=== PATIENT | female | born 1980 | race African-American/Black ===

== ENCOUNTER 2017-05-10 04:15 | Emergency (ER) | payer OTHER ==
[2017-05-10 04:20] VITALS: BP 149/104; BMI 24.7
--- NOTE | 2017-05-10 04:44 | DR.GENAD ---
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 Chief Complaint:: epigastric pain for 30 minutes Self Treatment fo Chief Complaint: none - Nurses notes reviewed Nurses Notes Review: Yes - Source History Provided: Patient - Mode of Arrival Mode of Arrival: Ambulatory - Timing Onset of Chief Complaint: 05/10/17 Came on: Gradually, On Awakening - Duration How lon Duration: Minutes - Location Location: epigastric - Severity Severity: Moderate, Severe - Associated Signs and Symptoms Associated Signs and Symptoms: none PMH - PMH Past Medical History: No Past Surgical History: No - Family History History of Family Medical Conditions: Yes Family Medical History: Cancer, Coronary Artery Disease, Heart Failure - Social History Does patient currently use any type of tobacco product: No Have you used tobacco products in the last 12 months: No Type of Tobacco Use: None Does any household member use tobacco: No Alcohol Use: None Do you use any recreational Drugs:: No Lives With: Family Lives Where: Home - infectious screening In the last 2 months have you had wt loss of >10#?: NO Have you had fever, night sweats or hemotysis?: No Have you traveled outside the country in the last 6 months?: No Isolation: Standard ROS - Review of Systems Constitutional: No Symptoms Reported Eyes: No Symptoms Reported ENTM: No Symptoms Reported Respiratoy: No Symptoms Reported Cardiovascular: No Symptoms Reported Gastrointestinal/Abdominal: Abdominal Pain (epigastric) Genitourinary: No Symptoms Reported Neurological: No Symptoms Reported Musculoskeletal: No Symptoms Reported Integumentary: No Symptoms Reported Hematologic/Lymphatic: No Symptoms Reported Endocrine: No Symptoms Reported Psychiatric: No Symptoms Reported All Other Systems: Reviewed and Negative PE - Vital Signs Vitals: Temperature 97.9 F Pulse Rate 86 Respiratory Rate 18 Blood Pressure 149/104 O2 Sat by Pulse Oximetry 100 - General Limitations: No Limitations General Appearance: Alert, In No Apparent Distress - Head Head Exam: Normal Inspection - Eyes Eye exam: Normal Appearance - ENT ENT Exam: Normal Exam External Ear Exam: Normal External Inspection TM/Canal Exam: Bilateral Normal Nose Exam: Normal Nose Exam Mouth Exam: Normal Inspection Throat Exam: Normal Inspection - Neck Neck Exam: Normal Inspection - Chest Chest Inspection: Normal Inspection - Respiratory Respiratory Exam: Normal Lung Sounds Bilat Respiratory Exam: Bilateral Clear to Auscultation - Cardiovascular Cardiovascular Exam: Regular Rate, Normal Rhythm - Abdominal Exam Abdominal Exam: Normal Inspection, Normal Bowel Sounds, Soft, Tenderness Abdominal Tenderness: Epigastrium, Moderate - Extremities Extremities Exam: Normal Inspection - Back Back Exam: Normal Inspection - Neurologic Neurological Exam: Alert, Oriented X3 - Psychiatric Psychiatric Exam: Normal Affect, Normal Mood - Skin Skin Exam: Warm, Dry, Intact, Normal Color ROR - Labs Reviewed Result Diagrams: 05/10/17 05:05 05/10/17 05:05 Laboratory: WBC 10.3 X10^3/uL (3.6-10.0) H 05/10/17 05:05 RBC 4.50 X10^6/uL (3.5-5.4) 05/10/17 05:05 Hgb 12.4 g/dL (12.0-16.0) 05/10/17 05:05 Hct 35.9 % (36.0-47.0) L 05/10/17 05:05 MCV 79.8 fL (80.0-100.0) L 05/10/17 05:05 MCH 27.5 pg (27.0-34.0) 05/10/17 05:05 MCHC 34.5 g/dL (33.0-35.0) 05/10/17 05:05 RDW 14.1 % (11.6-16.5) 05/10/17 05:05 Plt Count 265 X10^3/uL (150.0-450.0) 05/10/17 05:05 MPV 8.7 fL (7.4-11.0) 05/10/17 05:05 Neut % 73.7 % (42.0-75.0) 05/10/17 05:05 Lymph % 18.7 % (21.0-51.0) L 05/10/17 05:05 [place] % 5.0 % (0.0-13.0) 05/10/17 05:05 Eos % 2.2 % (0.9-2.9) 05/10/17 05:05 Baso % 0.4 % (0.2-1.0) 05/10/17 05:05 Neut # 7.6 x10^3/uL (2.2-4.8) H 05/10/17 05:05 Lymph # 1.9 X10^3/uL (1.3-2.9) 05/10/17 05:05 [place] # 0.5 x10^3/uL (0.3-0.8) 05/10/17 05:05 Eos # 0.2 x10^3/uL (0.0-0.2) 05/10/17 05:05 Baso # 0.0 X10^3/uL (0.0-0.1) 05/10/17 05:05 Absolute Nucleated RBC 0.0 /100WBC 05/10/17 05:05 Sodium 141 mmol/L (136-145) 05/10/17 05:05 Corrected Sodium TNP 05/10/17 05:05 Potassium 3.4 mmol/L (3.5-5.1) L 05/10/17 05:05 Chloride 107 mmol/L (98-107) 05/10/17 05:05 Carbon Dioxide 28.3 mmol/L (21-32) 05/10/17 05:05 BUN 12 mg/dL (7-18) 05/10/17 05:05 Creatinine 0.80 mg/dL (0.55-1.02) 05/10/17 05:05 Est GFR (MDRD) Af Amer > 60 (>60) 05/10/17 05:05 Est GFR (MDRD) Non-Af > 60 (>60) 05/10/17 05:05 Glucose 102 mg/dL (65-99) H 05/10/17 05:05 Calcium 8.8 mg/dL (8.5-10.1) 05/10/17 05:05 Corrected Calcium 9.4 mg/dL (8.5-10.1) 05/10/17 05:05 Total Bilirubin 0.50 mg/dL (0.2-1.0) 05/10/17 05:05 AST 41 Units/L (15-37) H 05/10/17 05:05 ALT 32 Units/L (12-78) 05/10/17 05:05 Alkaline Phosphatase 60 Units/L (46-116) 05/10/17 05:05 Total Protein 6.6 g/dL (6.4-8.2) 05/10/17 05:05 Albumin 3.3 g/dL (3.4-5.0) L 05/10/17 05:05 Globulin 3.3 g/dL (2.5-4.5) 05/10/17 05:05 Albumin/Globulin Ratio 1.0 Ratio (1.1-2.1) L 05/10/17 05:05 Amylase 43 Units/L (25-115) 05/10/17 05:05 Lipase 101 Units/L (73-393) 05/10/17 05:05 H. pylori IgG Antibody Positive (NEGATIVE) A 05/10/17 05:05 - Diagnosis Discharge Problem: Epigastric abdominal pain, H. pylori infection - Discharge Plan Disposition: HOME, SELF-CARE Condition: Stable - Follow ups/Referrals Follow ups/Referrals: [facility],None [Primary Care Provider] - 3 days - Instructions
[2017-05-10] MEDS ORDERED: NexIUM PO ONE (04:50)
[2017-05-10] MEDS ORDERED: PROTONIX INJ 40 MG VIAL IVP ONE (04:50)
[2017-05-10] MEDS ORDERED: PROTONIX INJ 40 MG VIAL ONE (04:51)
[2017-05-10 05:14] LABS: BASOPHILS % (AUTO) 0.4 % (0.2-1.0); EOSINOPHILS # (AUTO) 0.2 x10^3/uL (0.0-0.2); EOSINOPHILS % (AUTO) 2.2 % (0.9-2.9); HEMATOCRIT 35.9 % (36.0-47.0); HEMOGLOBIN 12.4 g/dL (12.0-16.0); LYMPHOCYTES # (AUTO) 1.9 X10^3/uL (1.3-2.9); LYMPHOCYTES % (AUTO) 18.7 % (21.0-51.0); MEAN CORPUSCULAR HEMOGLOBIN 27.5 pg (27.0-34.0); MEAN CORPUSCULAR HGB CONC 34.5 g/dL (33.0-35.0); MEAN CORPUSCULAR VOLUME 79.8 fL (80.0-100.0); MEAN PLATELET VOLUME 8.7 fL (7.4-11.0); MONOCYTES # (AUTO) 0.5 x10^3/uL (0.3-0.8); NEUTROPHILS # (AUTO) 7.6 x10^3/uL (2.2-4.8); NEUTROPHILS % (AUTO) 73.7 % (42.0-75.0); PLATELET COUNT 265 X10^3/uL (150.0-450.0); RED CELL DISTRIBUTION WIDTH 14.1 % (11.6-16.5); WHITE BLOOD COUNT 10.3 X10^3/uL (3.6-10.0)
[2017-05-10 05:26] LABS: ALANINE AMINOTRANSFERASE 32 Units/L (12-78); ALBUMIN 3.3 g/dL (3.4-5.0); ALKALINE PHOSPHATASE 60 Units/L (46-116); AMYLASE 43 Units/L (25-115); ASPARTATE AMINO TRANSFERASE 41 Units/L (15-37); BLOOD UREA NITROGEN 12 mg/dL (7-18); CALCIUM 8.8 mg/dL (8.5-10.1); CARBON DIOXIDE 28.3 mmol/L (21-32); CHLORIDE 107 mmol/L (98-107); COR CA(FOR HYPOALB) 9.4 mg/dL (8.5-10.1); LIPASE 101 Units/L (73-393); SODIUM 141 mmol/L (136-145); TOTAL PROTEIN 6.6 g/dL (6.4-8.2); eGFR BLACK RACES > 60 (>60); eGFR NON BLACK RACES > 60 (>60)
[2017-05-10] MEDS ORDERED: K-DUR TAB 20 MEQ PO ONE ×2 (06:18→06:20)
== END 2017-05-10 06:32 | disposition home or self-care (01) ==
LOC: ER 04:15
DX: R10.13 Epigastric pain (principal); B96.81 Helicobacter pylori [H. pylori] as the cause of diseases classified elsewhere
CPT/HCPCS: 36415; 80053; 82150; 83690; 85025; 86677; 96365; 96374; 99283; C9113

== ENCOUNTER 2017-12-04 02:45 | Emergency (ER) | payer OTHER ==
[2017-12-04 02:56] VITALS: BMI 24.7
[2017-12-04] MEDS ORDERED: LEVSIN/MAALOX/LIDOC VISC PO ONE (03:02)
[2017-12-04] MEDS ORDERED: ZANTAC PO ONE (03:03)
--- NOTE | 2017-12-04 03:49 | ED.ABDFE ---
HPI - Time seen Time seen: 03:05 - PCP Primary Care Physician: LATESHA - HPI Comment HPI Comment: PATIENT WENT TO BED BUT BURNING EPIGASTRIC PAIN STARTED. GOT SEVERE. CALL RESCUE AND CAME TO ED. HAVE HISTORY OF H PYLORI GASTRITIS THAT WAS TREATED. PATIENT DID NOT TAKE ANY MED FOR THE PAIN. HAVE HAD SIMILAR PAIN PREVIOUSLY RELATED TO GASTRITIS. - Complaint Chief Complaint Doctors Comments: EPIGASTRIC PAIN TONIGHT. Chief Complaint:: EPIGASTRIC PAIN, BURNING SENSATION. HISTORY OF H PYLORI, TREATED WITH ANTIBIOTICS. DENIES ANY N/V/D. LAST NORMAL BM WAS 2-3 DAYS AGO( STATES NORMAL FOR HER). - Nurses notes reviewed Nurses Notes Review: Yes - Source History Provided: Patient, EMS - Mode of arrival Mode of Arrival: EMS - Timing Onset of Chief Complaint: 12/04/17 Came on: Suddenly - Duration Duration: Constant Duration: Hours - Location Location: Epigastric - Severity Severity: Moderate - Quality Quality: Burning - Context Onset: Suddenly History of: None - Modifying Worsening Factors: Nothing Improving Factors: Nothing - Associated signs and symptoms Associated Signs and Symptoms: None PMH - PMH Past Medical History: Yes Past Medical History: Hypertension Past Surgical History: No - Family History History of Family Medical Conditions: Yes Family Medical History: Cancer, Coronary Artery Disease, Heart Failure - Social History Type of Tobacco Use: None Alcohol Use: None Do you use any recreational Drugs:: No Lives With: Family Lives Where: Home - infectious screening Have you traveled outside the country in the last 6 months?: No Isolation: Standard ROS - Review of Systems Constitutional: No Symptoms Reported Eyes: No Symptoms Reported ENTM: No Symptoms Reported Respiratoy: No Symptoms Reported Cardiovascular: No Symptoms Reported Gastrointestinal/Abdominal: Abdominal Pain Genitourinary: No Symptoms Reported Neurological: No Symptoms Reported Musculoskeletal: No Symptoms Reported Integumentary: No Symptoms Reported Hematologic/Lymphatic: No Symptoms Reported Endocrine: No Symptoms Reported All Other Systems: Reviewed and Negative PE - Vital Signs Vitals: Temperature 97.5 F Pulse Rate 103 Respiratory Rate 20 Blood Pressure [Left Arm] 160/89 Blood Pressure 191/105 O2 Sat by Pulse Oximetry 100 - General Limitations: No Limitations General Appearance: Alert - Head Head Exam: Normal Inspection - Eyes Eye exam: Normal Appearance - ENT ENT Exam: Normal External Ear Exam - Neck Neck Exam: Normal Inspection - Chest Chest Inspection: Symmetric Chest Wall Rise - Respiratory Respiratory Exam: Normal Lung Sounds Bilat Respiratory Exam: Bilateral Clear to Auscultation - Cardiovascular Cardiovascular Exam: Regular Rate, Normal Rhythm, Normal Heart Sounds - Abdominal Exam Abdominal Exam: Normal Bowel Sounds, Soft, Tenderness Abdominal Tenderness: Epigastrium - Rectal Rectal Exam: Deferred - Back Back Exam: Normal Inspection - Extremeties Extremities Exam: Normal Inspection - External Exam: Female: Deferred : Speculum Exam (Female): Deferred : Bimanual Exam (female): Deferred - Neurologic Neurological Exam: Alert, Oriented X3 - Psychiatric Psychiatric Exam: Normal Affect, Normal Mood - Skin Skin Exam: Normal Color MDM - Differential Diagnosis Differential Diagnosis- Considerations may include:: Gastritus/PUD Course - Treatment Treatment: SEE ORDERS. GI COCKTAIL AND ZANTAC PO IN ED. PAIN RESOLVED. BP SPONTANOUS RESOLVE TO NORMAL. - Reevaluation 1st: Improved - Education/Counseling Education/Counseling: Patient, Education Educated On: Treatment, Diagnosis, Needs for Follow Up - Diagnosis Discharge Problem: Epigastric pain, Gastritis - Discharge Plan Condition: Stable Prescriptions: Gi Cocktail [LEVSIN/Maalox/Lidoc Visc (GI COCKTAIL) *] 30 ml PO QID #240 ml Ranitidine HCl [ZANTAC TAB 150 MG *] 300 mg PO HS #30 tab - Follow ups/Referrals Follow ups/Referrals: Kane CHARLTON [Primary Care Provider] - 3 days - Instructions Instructions: Abdominal Pain, Adult, [id number], Gastritis, Adult Additional Instructions: RETURN TO ED IF WORSE.
[2017-12-04 04:05] VITALS: BP 134/83
== END 2017-12-04 04:05 | disposition home or self-care (01) ==
LOC: ER 02:45
DX: K29.70 Gastritis, unspecified, without bleeding (principal); R10.13 Epigastric pain; Z87.19 Personal history of other diseases of the digestive system
CPT/HCPCS: 99282